=== PATIENT | female | born 1960 | race Caucasian/White ===

== ENCOUNTER → 2019-09-30 13:17 | Outpatient (CLI) | payer MEDICARE, SELFPAY ==
--- NOTE | 2019-09-30 13:21 | STE_ITS ---
Reason For Study: CHEST PAIN Stress Results Protocol: Stress Echocardiogram Maximum Predicted HR: 160 bpm Target HR: 136 bpm % Maximum Predicted HR: 104 % DurationHeart Rate Stage (mm:ss) (bpm) BP Comment BASELINE 98 128/80 AYDE PROTOCOL- STAGE 1 3:00 130 154/70SOB AYDE PROTOCOL- STAGE 2 3:00 166 200/84SOB, NO CP RECOVERY 109 138/84DENIES COMPLAINT Stress Duration: 6:00 mm:ss Maximum Stress HR: 166 bpm Baseline Echocardiogram Findings The estimated ejection fraction is 70 %. EF at peak exercise is 80%. Stress Echo Wall motion Data Resting WM Intermediate WM Stress WM Resting Wall Motion Wall Motion Stress No regional wall motion No regional wall motion abnormalities noted. abnormalities noted. EKG Data The baseline ECG demonstrates normal sinus rhythm with at rate of _ beats per minute. At peak exercise, upsloping ST changes only were noted, which did not meet the criteria for ischemia. No ischemic changes. Symptoms with Stress The patient experinced no chest pain . Interpretation Summary The estimated ejection fraction is 70 %. Stress echo is negative for stress induced CP or EKG or echocardiographic changes of ischemia. Functional capacity is normal for age Ordering Physician: Damir Morillo Referring Physician: Damir Morillo Performed By: Rachna Noland RDCS
== END ==
PROVIDERS: PCP Student in an Organized Health Care Education/Training Program; Referring Provider Student in an Organized Health Care Education/Training Program; Visit Provider Student in an Organized Health Care Education/Training Program
DX: R07.9 Chest pain, unspecified (principal); E11.9 Type 2 diabetes mellitus without complications; I10 Essential (primary) hypertension; E78.5 Hyperlipidemia, unspecified; I47.1 Supraventricular tachycardia; Z87.891 Personal history of nicotine dependence
CPT/HCPCS: 93017; 93350

== ENCOUNTER → 2020-04-03 15:39 | Outpatient (CLI) | payer MEDICARE, SELFPAY ==
--- NOTE | 2020-04-03 15:54 | CT_ITS ---
STUDY: CT CHEST WITHOUT CONTRAST- LOW DOSE SCREENING PROTOCOL REASON FOR EXAM: Female, 59 years old. Current smoker. 75 pack per year history. No current symptoms of lung cancer or pulmonary infection. Shared decision-making with referring PCP documented in patient''s record. RADIATION DOSAGE (If Supplied By Facility): CTDIvol = ( 4.02 ) mGy, DLP = ( 146.47 ) mGycm TECHNIQUE: Low dose screening CT examination performed from the base of the neck to the upper abdomen. Sagittal and coronal reformatted images performed. Sagittal and coronal MIP images provided. The measurements provided are average, rounded measurements per ACR guidelines. COMPARISON: None. FINDINGS: Mild emphysematous changes. No noncalcified nodule or mass. Linear scar in the lingula of the left lung. There is no demonstrated pleural abnormality. There is a small pericardial effusion. There are calcifications of the coronary arteries. Normal mediastinum. Normal hilar regions. Normal unenhanced pulmonary arteries. Normal aorta arch and descending thoracic aorta. Normal osseous structures. There is no demonstrated abnormality of the visualized upper abdomen. CT/Low Dose CT Lung Screening IMPRESSION: 1. No significant indeterminate incidental findings requiring additional imaging. 2. Incidental findings include small pericardial effusion.. ASSESSMENT CATEGORY: LungRADS 1 - Negative. Continue annual screening with LDCT in 12 months, per established ACR guidelines. Electronically Signed: Aubrey Loo MD at 16:26 EST Tel , Service support ,
== END ==
PROVIDERS: PCP Student in an Organized Health Care Education/Training Program; Referring Provider Student in an Organized Health Care Education/Training Program; Visit Provider Student in an Organized Health Care Education/Training Program
DX: Z12.2 Encounter for screening for malignant neoplasm of respiratory organs (principal); R61 Generalized hyperhidrosis; E67.3 Hypervitaminosis D; I10 Essential (primary) hypertension; R79.89 Other specified abnormal findings of blood chemistry; Z87.891 Personal history of nicotine dependence
CPT/HCPCS: 71271

== ENCOUNTER → 2021-02-14 14:04 | Outpatient (CLI) | payer MEDICARE, SELFPAY ==
--- NOTE | 2021-02-14 14:25 | CT_ITS ---
STUDY: CT MAXILLOFACIAL SINUSES REASON FOR EXAM: Female, 60 years old. SINUSITIS RADIATION DOSAGE (If Supplied By Facility): CTDIvol = ( 28.14 ) mGy, DLP = ( 725.09 ) mGycm TECHNIQUE: The patient was scanned in a multi detector CT scanner. High resolution axial imaging was performed without the administration of intravenous contrast material. Sagittal and coronal images were reconstructed. Individualized dose optimization techniques were used for this CT. COMPARISON: None. FINDINGS: FRONTAL SINUSES: Normal aeration, without mucosal inflammatory disease. ETHMOIDAL SINUSES: Mild degree of mucosal thickening of the ethmoid sinuses bilaterally. MAXILLARY SINUSES: Normal aeration, without mucosal inflammatory disease. SPHENOIDAL SINUSES: Normal aeration, without mucosal inflammatory disease. There is patency of the bilateral maxillary infundibuli with normal uncinate processes, ethmoid bullae, and hiatus semilunaris. Normal bilateral middle turbinates. Normal bilateral inferior turbinates. There is a mild right sided nasal septal deviation with a right sided nasal septal spur. There is patency of the bilateral nasal airways. The visualized osseous structures are normal. The visualized bilateral orbital contents are normal. Atherosclerotic plaque formation of the carotid bifurcations bilaterally with evidence of carotid stenosis more prominent on the right side. CT/Sinus/Facial Bone IMPRESSION: Mild degree of mucosal thickening of the ethmoid sinuses bilaterally. Electronically Signed: Reji Ortega MD at 15:27 EST , Service support ,
== END ==
LOC: CT 14:08
PROVIDERS: PCP Student in an Organized Health Care Education/Training Program; Referring Provider Otolaryngology; Visit Provider Otolaryngology
DX: J32.9 Chronic sinusitis, unspecified (principal)
CPT/HCPCS: 70486

== ENCOUNTER 2021-03-11 12:17 | Outpatient (CLI) | payer MEDICARE, SELFPAY ==
[2021-03-11 13:05] LABS: Hematocrit 50.1 % (37-47); Hemoglobin 15.9 g/dL (12.0-15.0); Mean Corp Hgb Conc 31.7 g/dL (32-36); Mean Corpuscular Hgb 29.7 pg (27.0-32.0); Mean Corpuscular Volume 93.6 fL (81-99); Mean Platelet Vol. 10.5 fl (6.2-12.0); Platelet Count 256 K/mm3 (150-450); RBC Distribution Width CV 14.6 % (11.6-14.6); RBC Distribution Width SD 50.7 fl (35.1-43.9); Red Blood Count 5.35 M/mm3 (4.2-5.4); White Blood Count 9.3 K/mm3 (4.4-11.0)
--- NOTE | 2021-03-11 13:05 | EKG12_ITS ---
Test Reason : PREOP Blood Pressure : / mmHG Vent. Rate : 087 BPM Atrial Rate : 087 BPM P-R Int : 156 ms QRS Dur : 072 ms QT Int : 386 ms P-R-T Axes : 070 027 077 degrees QTc Int : 464 ms Normal sinus rhythm Normal ECG Confirmed by MAKENNA SOUZA, LOGAN ([id number]), proposal editor CIARA NICOLE ([id number]) on 03/13/2021 10:47:02 AM Referred By: Rafael Brody Confirmed By:LOGAN MENSAH MD
[2021-03-11 13:52] LABS: Anion Gap 6 (5-15); BUN 18 mg/dL (7-18); BUN/Creat Ratio 16.2 RATIO (10-20); Calcium,Total 9.9 mg/dL (8.5-10.1); Chloride 105 mmol/L (98-107); Creatinine, Serum 1.11 mg/dL (0.55-1.02); EST Glomerular Filtration Rate 53 mL/min (>60); Est Glom Filt Rate - Afr Amer 64 mL/min (>60); Glucose 127 mg/dL (74-106); Potassium 4.3 mmol/L (3.5-5.1); Sodium Level 140 mmol/L (136-145)
== END 2021-03-11 23:59 | disposition short-term general hospital (02) ==
PROVIDERS: PCP Student in an Organized Health Care Education/Training Program; Referring Provider Otolaryngology; Visit Provider Otolaryngology
DX: Z01.812 Encounter for preprocedural laboratory examination (principal)
CPT/HCPCS: 36415; 80048; 85027; 93005